=== PATIENT | female | born 1955 | race Caucasian/White ===

== ENCOUNTER 2020-11-02 12:59 | Outpatient (REF) | payer MEDICARE, OTHER, SELFPAY | END 2020-11-02 13:00 | disposition home or self-care (01) | LOC: HO.WFDLDS 12:59 | PROVIDERS: Visit Provider Internal Medicine | DX: Z20.822 Contact with and (suspected) exposure to COVID-19 (principal) | CPT/HCPCS: C9803; U0003; U0005 ==

== ENCOUNTER 2021-04-12 18:38 | Outpatient (REF) | payer MEDICARE, OTHER, SELFPAY | END 2021-04-12 18:39 | disposition home or self-care (01) | LOC: HO.LNP 18:38 | PROVIDERS: Visit Provider Family Medicine | DX: Z20.822 Contact with and (suspected) exposure to COVID-19 (principal) | CPT/HCPCS: U0003; U0005 ==

== ENCOUNTER 2021-05-25 13:11 | Outpatient (REF) | payer MEDICARE, OTHER, SELFPAY ==
--- NOTE | ~2021-05-25 | MM_ITS ---
EXAMINATION: MM DIAGNOSTIC DIGITAL BREAST TOMOSYNTHESIS, BILATERAL CLINICAL INFORMATION: Due for yearly. Prior mammography noted left axillary node with calcifications or tattoo pigment. The lifetime risk of breast cancer based on the Tyrer-Cuzick Model is 7%. COMPARISON: Mammography: 09/12/2019 (BI-RADS 0), 06/01/2018 and prior exams dating back to 04/07/2009 TECHNIQUE: Digital breast tomosynthesis is performed in both the craniocaudal and mediolateral oblique views along with computer-aided detection (CAD). Synthesized 2D images are generated from the tomosynthesis. Additional right cleavage, left CC, and left MLO x2 views are obtained. Exam is technically challenging and positioning tailored to patient capabilities. FINDINGS: There are scattered areas of fibroglandular density (ACR BI-RADS breast composition Category b). Parenchymal pattern is similar to prior studies. There is no interval mass, architectural abnormality, or abnormal calcifications. Skin contours are smooth. Prior exam demonstrated a left axillary node with fine punctate high attenuation densities superior aspect, not previously appreciated, possibly calcifications or tattoo pigment (patient does have tattoos on left). This left axillary node shows normal lissette architecture with no cortical thickening or morphological change from prior studies. The punctate densities or tattoo pigment are no longer appreciated. Results are discussed with the patient at time of visit. MM/MM tomosynthesis diagnostic BI IMPRESSION: No mammographic evidence of malignancy. ASSESSMENT: BI-RADS 2: Benign RECOMMENDATION: Routine annual mammography screening. This patient's information was entered into a reminder system with a target due date for their next mammogram.
== END 2021-05-25 13:12 | disposition home or self-care (01) ==
LOC: HO.MAMMO 13:11
PROVIDERS: Visit Provider Internal Medicine
DX: N63.32 Unspecified lump in axillary tail of the left breast (principal)
CPT/HCPCS: 77062; 77066